=== PATIENT | male | born 1940 | race Hispanic/Latino ===

== ENCOUNTER → 2025-01-27 | Day surgery (SDC) | payer MEDICARE ==
[2025-01-22 09:07] LABS: BASOPHILS % 0.4 % (0.0-1.0); EOSINOPHILS % 2.8 % (0.0-6.0); LYMPHOCYTES % 27.3 % (18.0-39.1); MONOCYTES % 8.8 % (4.4-11.3); NEUTROPHILS % 60.3 % (38.7-80.0); RED CELL DISTRIBUTION WIDTH 13.7 % (11.7-14.4)
[2025-01-22 09:44] LABS: EST GLOMERULAR FILTRATION RATE 87.0 ML/MIN (>=60)
[2025-01-22 09:47] LABS: INR 1.03
[~2025-01-27] VITALS: Ht 167.6 cm; Wt 64.9 kg
[2025-01-27] VITALS (10 sets, daily range): BP systolic 140–151; BP diastolic 56–70; PULSE 56–66; RESP 8–15; TEMP 97–97.8; O2SAT 100
[~2025-01-27] MED LIST: AMLODIPINE BESYL5 MG PO; ASPIRIN81 MG PO; CLOPIDOGREL75 MG PO; CRESTOR40 MG PO; FENTANYL CITRATE/PF 100MCG/2 ML INJ ONE; FLOMAX0.4 MG PO; HEPARIN SOD (PORCINE) 1000 UNIT/ML 30ML ONE; HEPARIN SOD/SOD CHLORIDE 2,000 ML ONE; IOPAMIDOL 370 MG/ML 100 ML INFUS..BTL INJ ONE; LEVOCETIRIZINE D5 MG PO; LIDOCAINE HCL 2% LOCAL 20 ML VIAL ONE; MELOXICAM7.5 MG PO; MIDAZOLAM HCL 2 MG/2 ML VIAL ONE; NITROGLYCERIN/D5W 200 MCG/ML 250 ML ONE; ROPINIROLE HC0.25 MG PO; SODIUM CHLORIDE 0.9% 1000ML 1,000 ML ONE; VERAPAMIL HCL 2.5 MG/ML 2 ML VIAL ONE; ZEBETA10 MG PO; ZESTRIL40 MG PO; ZETIA10 MG PO
== END | disposition home or self-care (01) ==
LOC: CATH LAB 06:56
PROVIDERS: ATTEND Internal Medicine Cardiovascular Disease
DX: I25.708 Atherosclerosis of coronary artery bypass graft(s), unspecified, with other forms of angina pectoris (principal); I10 Essential (primary) hypertension; E78.00 Pure hypercholesterolemia, unspecified; Z01.812 Encounter for preprocedural laboratory examination; Z79.1 Long term (current) use of non-steroidal anti-inflammatories (NSAID); Z79.899 Other long term (current) drug therapy; Z79.02 Long term (current) use of antithrombotics/antiplatelets; Z79.82 Long term (current) use of aspirin; Z95.1 Presence of aortocoronary bypass graft; Z95.5 Presence of coronary angioplasty implant and graft; Z86.73 Personal history of transient ischemic attack (TIA), and cerebral infarction without residual deficits; Z87.891 Personal history of nicotine dependence; Z82.49 Family history of ischemic heart disease and other diseases of the circulatory system
CPT/HCPCS: 36415; 75605; 75710; 76937; 80053; 85025; 85610; 93459; C1760; C1769 ×3; C1894; J1644; J2003; J2250; J3010; J7030; Q9967; 99152; 99153